=== PATIENT | male | born 1935 | race African-American/Black ===

== ENCOUNTER 2022-10-02 16:57 | Emergency (ER) | payer OTHER ==
[2022-10-02 17:11] VITALS: RESP 18; BMI 24.4
[2022-10-02] MEDS ORDERED: SODIUM CHLORIDE 0.9% 500 ML INFUS.BAG IV ONE (17:55)
[2022-10-02 18:50] LABS: HEMATOCRIT 45.1 % (35.4-49); HEMOGLOBIN 15.2 GM/dL (11.7-16.9); MCH 32.3 pg (25.7-33.7); MCHC 33.8 g/dl (32.0-35.9); MEAN CELL VOLUME 95.5 fl (80-96); MEAN PLT VOLUME 10.5 fl (7.5-11.1); PLATELET COUNT 276 10^3/uL (134-434); RBC 4.72 M/mm3 (4.00-5.60); RDW 13.7 % (11.9-15.9); WHITE BLOOD COUNT 9.3 K/mm3 (4.0-10.0)
[2022-10-02 19:21] LABS: BLOOD UREA NITROGEN 28.1 mg/dL (7-18); CALCIUM 10.3 mg/dL (8.5-10.1)
[2022-10-02 19:22] LABS: ALBUMIN 3.7 g/dl (3.4-5.0)
[2022-10-02 19:25] LABS: CREATININE 2.6 mg/dL (0.55-1.3)
[2022-10-02 19:26] LABS: TOT PROT 8.6 g/dl (6.4-8.2)
[2022-10-02 22:10] LABS: EPI CELLS 19 /uL (0-25.1); HYALINE CASTS 2 /uL (0-3.1); URINE APPEARANCE CLEAR; URINE BACTERIA 4 /uL (0-1359); URINE BILIRUBIN 1+ (NEGATIVE); URINE COLOR DK YELLOW; URINE GLUCOSE (UA) TRACE (NEGATIVE); URINE KETONE TRACE (NEGATIVE); URINE LEUK ESTERASE TRACE (NEGATIVE); URINE NITRITE NEGATIVE (NEGATIVE); URINE PROTEIN 2+ (NEGATIVE); URINE RBC 18 /uL (0-23.9); URINE WBC 26 /uL (0-25.8)
[2022-10-03] MEDS ORDERED: ASPIRIN 300 MG SUPP.RECT RC ONE ×2 (00:41→00:57)
[2022-10-03] MEDS ORDERED: HEPARIN NA (PORCINE) 5,000 UNITS/ML 1ML VIAL IVPUSH PRN ×2 (01:54)
[2022-10-03] MEDS ORDERED: HEPARIN NA (PORCINE) 5,000 UNITS/ML 1ML VIAL IVPUSH ONE (01:54)
[2022-10-03] MEDS ORDERED: HEPARIN - 25,000 UNIT in SODIUM CHLORIDE 495 ML IV SCH (02:00)
[2022-10-03 02:26] LABS: INR 1.08 (0.83-1.09); PROTHROMBIN TIME (PATIENT) 12.5 SEC (9.7-13.0)
[2022-10-03 02:31] VITALS: TEMP 98.6
[2022-10-03] MEDS ORDERED: HEPARIN NA (PORCINE) 5,000 UNITS/ML 1ML VIAL ONE (02:38)
[2022-10-03] MEDS ORDERED: HEPARIN INFUSION - 25,000 UNITS/500 ML INFUS.BAG IVPB ONE (02:38)
[2022-10-03 04:26] VITALS: BP 169/105; PULSE 55
== END 2022-10-03 05:12 | disposition short-term general hospital (02) ==
LOC: JER 16:57
PROC: 3E033GC Introduction of Other Therapeutic Substance into Peripheral Vein, Percutaneous Approach (ICD-10-PCS; principal; 2022-10-02)
PROC: 3E033GC Introduction of Other Therapeutic Substance into Peripheral Vein, Percutaneous Approach (ICD-10-PCS; 2022-10-02)
DX: R79.89 Other specified abnormal findings of blood chemistry (principal); R77.8 Other specified abnormalities of plasma proteins; R41.82 Altered mental status, unspecified; Z20.822 Contact with and (suspected) exposure to COVID-19
CPT/HCPCS: 0241U-QW; 36415; 70450-TC; 71045-TC-FY; 80053; 81003; 82607; 84439; 84443; 84484; 85027; 85610; 85730; 86780; 86850; 86900; 86901; 87086; 93005; 93010; 99285-25; J1644